=== PATIENT | male | born 1955 ===

== ENCOUNTER 2021-04-14 17:45 | Observation (INO) | payer MEDICARE, OTHER ==
[~2021-04-14] VITALS: Ht 180.3 cm; Wt 161.0 kg
--- NOTE | 2021-04-14 17:56 | NUR ---
TASK RN NOTE: REPORT TAKEN FROM [facility] STAFF: PT SEEKING MEDICAL CARE FOR SYNCOPAL EPISODE THIS AFTERNOON WHILE WORKING ON CAR, FELL FORWARD THEN BACK AND STRUCK BACK OF HEAD. PT THEN NOTIFIED BY [place] THAT HE HAD VTACH AND DEFIBRILLATOR HAD DISCHARGED SHOCK. TRANSPORTED BY HELICOPTER FROM [facility]. PT IS A&OX4. PT DENIES CHEST PAIN. PT DENIES MIDLINE CERVICAL PAIN, ABRASIONS NOTED TO BILATERAL SHINS AND BACK OF HEAD. EKG TAKEN ON ARRIVAL BY EDT. ALL MONITORS IN PLACE, PADS IN PLACE. PT SPEAKING WITH EDMD ROUSE WHO IS AT BEDSIDE COMPLETING INITIAL ASSESSMENT. REPORT GIVEN TO PRIMARY RN SANTIAGO.
--- NOTE | 2021-04-14 17:58 | NUR ---
REPORT FROM GAGE RN WITH ASSESSMENT PATIENT STABLE. ALERT, GOOD BLOOD PRESSURE/GOOD SKIN COLOR PLACED ON TUNE UP MECHANIC, DEFIB PADS PLACED HEART BLOCK ON MONITOR. PATIENT REPORTS NO HX OF. LARGE BORE PIV PLACED SHIRRER ASKED TO CLOSELY MONITOR PATIENT YARELI
[2021-04-14 18:38] LABS: BASOPHILS % (AUTO) 1 % (0-1); EOSINOPHILS % (AUTO) 3 % (1-7); LYMPHOCYTES % (AUTO) 15 % (22-44); MEAN CORPUSCULAR HEMOGLOBIN 30.5 pg (27.5-34.5); MEAN CORPUSCULAR HGB CONC 33.9 g/dL (33.2-36.2); MEAN PLATELET VOLUME 8.6 fL (7.4-10.4); MONOCYTES % (AUTO) 8 % (2-9); NEUTROPHILS % (AUTO) 74 % (42-75); PLATELET COUNT 146 x10^3/uL (130-400); RED BLOOD COUNT 4.97 x10^6/uL (4.38-5.82)
[2021-04-14 18:48] LABS: ALANINE AMINOTRANSFERASE 30 U/L (12-78); ALBUMIN 3.9 g/dL (3.4-5.0); ANION GAP 3 mmol/L (5-15); CALCIUM 8.8 mg/dL (8.5-10.1); CHLORIDE 108 mmol/L (98-107); CREATININE 0.82 mg/dL (0.7-1.3)
[2021-04-14 18:56] LABS: ALKALINE PHOSPHATASE 47 U/L (45-117); BILIRUBIN,TOTAL 0.5 mg/dL (0.2-1.0); TOTAL PROTEIN 7.7 g/dL (6.4-8.2); TROPONIN I 0.034 ng/mL (0.000-0.045)
[2021-04-14] MEDS ORDERED: METH10TA2 PO (18:59)
[2021-04-14] MEDS ORDERED: LISI-170 PO ×2 (18:59→19:28)
[2021-04-14] MEDS ORDERED: SOTA80TA PO (18:59)
[2021-04-14] MEDS ORDERED: OXYC1TAB14 PO (18:59)
[2021-04-14] MEDS ORDERED: CARV3.122 PO (18:59)
--- NOTE | 2021-04-14 19:20 | NUR ---
NO CHANGES IN RHYTHM (REMAINS IN HB) BUT PERFUSING WELL POC CLARIFIED WITH ERP- TO CONSULT CARDIOLODY/ADMIT
[2021-04-14] MEDS ORDERED: MORPHINE SULFATE 4 MG/ML, 1ML ONE (19:25)
[2021-04-14] MEDS ORDERED: CARV6.2512 PO (19:28)
[2021-04-14] MEDS ORDERED: MORPHINE SULFATE 4 MG/ML, 1ML IVPush PRN (19:30)
[2021-04-14 20:59] VITALS: BP 153/79
[2021-04-14] MEDS ORDERED: POLYETHYLENE GLYCOL 17 GM PACKET PO PRN (21:00)
[2021-04-14] MEDS ORDERED: ACETAMINOPHEN 325 MG TABLET PO PRN (21:00)
[2021-04-14] MEDS ORDERED: BISACODYL 10 MG SUPP PR PRN (21:00)
[2021-04-14] MEDS ORDERED: ONDANSETRON ODT 4 MG PO PRN (21:00)
[2021-04-14] MEDS: SODIUM CHLORIDE FLUSH 10ML SYR IVF SCH (21:00)
[2021-04-14] MEDS: METHADONE 10 MG TABLET PO SCH (23:00)
[2021-04-14] MEDS: CARVEDILOL 6.25 MG TABLET PO SCH (23:02)
[2021-04-14] MEDS: OXYcodone/APAP 5/325MG TABLET PO SCH (23:04)
[2021-04-14] MEDS: SOTALOL 80MG TABLET PO SCH (23:04)
[2021-04-15] MEDS ORDERED: CALCIUM CARBONATE 500 MG TAB.CHEW PO PRN
[2021-04-15 01:27] VITALS: BP 104/67
[2021-04-15] MEDS: OXYcodone/APAP 5/325MG TABLET PO SCH ×5 (03:00→15:00)
[2021-04-15] MEDS: METHADONE 10 MG TABLET PO SCH ×2 (05:41→11:44)
[2021-04-15 06:23] VITALS: BP 119/75
[2021-04-15 07:09] LABS: TROPONIN I 0.019 ng/mL (0.000-0.045)
[2021-04-15] MEDS ORDERED: LISINOPRIL 5 MG TABLET PO SCH (09:00)
[2021-04-15] MEDS ORDERED: SENNA/DOCUSATE TABLET PO SCH (09:00)
[2021-04-15] MEDS: SODIUM CHLORIDE FLUSH 10ML SYR IVF SCH (09:58)
[2021-04-15] MEDS: SOTALOL 80MG TABLET PO SCH ×2 (10:05→14:00)
[2021-04-15] MEDS: CARVEDILOL 6.25 MG TABLET PO SCH (10:07)
[2021-04-15 12:56] VITALS: BP 116/82
[2021-04-15] MEDS ORDERED: MUPI22OI2 TP (13:36)
== END 2021-04-15 16:10 | disposition home or self-care (01) ==
LOC: ED 19:03 → EDIP 19:41 → INTOOBSV 19:41 → 5SO 20:36
PROVIDERS: ADMIT Family Medicine; ATTEND Internal Medicine
DX: I47.2 Ventricular tachycardia (principal); I49.01 Ventricular fibrillation; T82.897A Other specified complication of cardiac prosthetic devices, implants and grafts, initial encounter; I48.91 Unspecified atrial fibrillation; G47.30 Sleep apnea, unspecified; E66.9 Obesity, unspecified; S80.211A Abrasion, right knee, initial encounter; S80.212A Abrasion, left knee, initial encounter; I44.7 Left bundle-branch block, unspecified; I10 Essential (primary) hypertension; C49.9 Malignant neoplasm of connective and soft tissue, unspecified; M19.90 Unspecified osteoarthritis, unspecified site; F11.20 Opioid dependence, uncomplicated; Z79.899 Other long term (current) drug therapy; Z87.891 Personal history of nicotine dependence; Z68.42 Body mass index [BMI] 45.0-49.9, adult; W18.39XA Other fall on same level, initial encounter; Y93.89 Activity, other specified; Y92.89 Other specified places as the place of occurrence of the external cause; Z95.810 Presence of automatic (implantable) cardiac defibrillator
CPT/HCPCS: 36415; 80053; 83735; 84443; 84484; 85025; 93005; 96374; 99284; C8929; G0378; J2270; Q9957